=== PATIENT | male | born 1945 | race Caucasian/White ===

== ENCOUNTER → 2016-07-20 | Day surgery (SDC) | payer OTHER ==
[~2016-07-20] VITALS: Ht 177.8 cm; Wt 108.9 kg
[~2016-07-20] MED LIST: ASPIRIN EC81 M1 PO; ATORVASTATIN CA40 M1 PO; FERROUS SULFAT325 M3 PO; FLOMAX0.4 M1 PO; LASIX20 M1 PO; NEURONTIN300 M1 PO; OMEPRAZOLE20 M2 PO; TOVIAZ4 MG PO; TRAMADOL HCL50 M1 PO; WARFARIN
[2016-07-20 08:14] LABS: PT 15.4 SEC (9.4-12.5)
--- NOTE | 2016-07-20 14:21 | Operative Report ---
Operative/Inv Procedure Report Surgery Date: 07/20/16 Name of Procedure: Cytstoscopy, R ureteroscopy, laser lithotripsy, basket extraction of stone fragments, inertion of R double J ureteral stent Pre-Operative Diagnosis: Right distal ureteral calculus Post-Operative Diagnosis: Same Estimated Blood Loss: scant Surgeon/Backup Sawyer: Dmitriy GU,BRIANNA Doe Anesthesia: laryngeal mask airway Drains: 20 fr springer and 24 cm, 6 fr R double J ureteral stent Specimens: Ureteral stone fragments Complications: none Condition: stable Operative Indication: R flank pain. ? R distal ureteral stone on CT scan. 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 He was placed in the supine position on the cystoscopy table. A timeout was executed appropriately with the patient awake. Gen. anesthesia was induced via LMA. He was then placed in dorsal lithotomy position. Draped in usual fashion for cystoscopy. A surgical pause was executed appropriately. Fluoroscopy images taken with a marker on the right side of the abdomen to confirm the correct side of surgery as well as the correct orientation of the fluoroscopy image. The 22 [place] cystoscope sheath was placed in the bladder under direct vision using the 30 lens. Anterior urethra was normal. 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 Upon entering the bladder cystoscopy was performed. The bladder was fairly heavily trabeculated. There was no evidence of bladder tumor or stone. The ureteral orifices were normal in location and appearance of the left was difficult to see. A guidewire was placed through the cystoscope and into the right ureter and advanced up the level of the right kidney. The cystoscope was removed leaving the wire in place. The short rigid ureteroscope was advanced through the urethra into the bladder. His advanced into the right ureter. A large stone was seen in the right distal ureter. Using the 400 holmium laser fiber the stone was fragmented into multiple small fragments. Spiral basket was used to extract the larger fragments. Some small fragments remained in place. At this point the ureteroscope was removed. The cystoscope was back loaded onto the guidewire. Open-ended catheter was placed over the wire and the wire removed. Some contrast was injected to outline the right renal collecting system. Guidewire was placed back through the open-ended catheter which was removed. Under visual fluoroscopic control a 24 cm 6 [place] right double-J ureteral stent was placed. Fluoroscopy confirmed the proximal and the stent coiled in the right renal pelvis and the distal end coiled in the bladder. The cystoscope was then removed. A long suture was left attached the distal and the stent exiting the urethra. A 20 [place] Springer catheter was placed. The patient tolerated the procedure wellcompletion was taken recovery room in stable condition. Findings: Large R distal ureteral stone
--- NOTE | 2016-07-20 17:16 | RADIOLOGY REPORT ---
EXAMINATION: XR ABDOMEN CLINICAL INDICATION: Right cystography, ureteroscopy and laser treatment performed. COMPARISON: None TECHNIQUE: Intraoperative fluoroscopic imaging of the abdomen was utilized. FLUOROSCOPY TIME: 0.7 minutes. DOSE: 16.7 mGy NUMBER OF SAVED IMAGES: 7 FINDINGS: Fluoroscopic imaging support was provided to Dr. Medrano within the operating room. Please refer to the operative report regarding the intraoperative findings and specific procedures performed. Images were acquired during a right ureterography and right ureteral stent placement. IMPRESSION: Fluoroscopic imaging support was provided to the operating room.
== END ==
LOC: STS 02:08
PROVIDERS: Urology
DX: N21.0 Calculus in bladder (principal); N32.89 Other specified disorders of bladder; I48.91 Unspecified atrial fibrillation; Z79.01 Long term (current) use of anticoagulants; K21.9 Gastro-esophageal reflux disease without esophagitis; I25.2 Old myocardial infarction
CPT/HCPCS: 36415; 74000; 82355; C2617; J0690; J2250